=== PATIENT | male | born 1935 | race Caucasian/White ===

== ENCOUNTER 2018-10-07 12:05 | Inpatient (IN) | payer MEDICARE, BC ==
[2018-10-07 12:37] LABS: CHLORIDE,CL 106 mEq/L (98-106); SODIUM,NA 143 mEq/L (136-145)
[2018-10-07] MEDS ORDERED: Sodium Chloride 0.9% 1,000 ML IV ONE ×2 (13:01→13:10)
--- NOTE | 2018-10-07 13:19 | EDM.PDOC ---
ED HPI GENERAL MEDICAL PROBLEM - General Chief Complaint: Chest Pain Stated Complaint: CP FROM THE CLINIC Time Seen by Provider: 10/07/18 13:09 Source of Information: Reports: Patient History Limitations: Reports: No Limitations - History of Present Illness INITIAL COMMENTS - FREE TEXT/NARRATIVE: This patient is an 83 year old male that presents to the ER. Patient reports that the past 2 days he has had dizziness. Patient reports then today he woke up at 7am and went to walk to the kitchen. Patient reports that he became dizzy. He also reports that he was nauseated and diaphoretic. Patient reports that he went back to sit down and the dizziness was there, but improved. He reports the diaphoresis improved as well. Patient reports he called the clinic this morning and made him an appointment today at 11am. Patient reports while driving here that his chest left side was tight. Patient reports left sided chest tightness. He reports his chest tightness resolved completely when he arrived in the ER. Patient also reports he noticed blood in his left eye 1 week ago, but denies any vision changes. Patient also reports he has had fluctuations in blood pressure the last several weeks, but especially since yesterday. He has been low, but today he took at home and was high. Onset Date: 10/05/18 Duration: Getting Worse Location: Reports: Head, Chest Quality: Reports: Other (tightness) Severity: Mild Improves with: Reports: Rest Worsens with: Reports: Movement Associated Symptoms: Reports: Chest Pain, Diaphoresis, Headaches, Nausea/ Vomiting. Denies: Confusion, Cough, cough w sputum, Fever/Chills, Loss of Appetite, Malaise, Rash, Seizure, Shortness of Breath, Syncope, Weakness Head Pain Score (Numeric/FACES): 2 - Related Data Allergies Allergy/AdvReac Type Severity Reaction Status Date / Time Sulfa (Sulfonamide Allergy Hives Verified 10/07/18 13:10 Antibiotics) Home Meds: Home Meds Cyanocobalamin (Vitamin B12) [Vitamin B12] 2,000 mcg IJ Q30D 10/13/13 [History] Multivitamin [Daily Vitamin] 1 each PO DAILY 10/13/13 [History] atorvaSTATin [Lipitor] 10 mg PO DAILY 10/13/13 [History] Moexipril [Univasc] 7.5 mg PO DAILY 12/22/15 [History] Cholecalciferol (Vitamin D3) [Vitamin D3] 1,000 units PO DAILY 12/19/16 [History ] Metoprolol Succinate 25 mg PO DAILY 12/19/16 [History] Sertraline [Zoloft] 1 tab PO DAILY 10/07/18 [History] Past Medical History Cardiovascular History: Reports: Hypertension, Stents Neurological History: Reports: CVA Social & Family History - Family History Family Medical History: Noncontributory - Tobacco Use Smoking Status *Q: Never Smoker - Recreational Drug Use Recreational Drug Use: No ED ROS GENERAL - Review of Systems Review Of Systems: See Below Constitutional: Reports: Diaphoresis HEENT: Reports: No Symptoms Respiratory: Reports: No Symptoms. Denies: Shortness of Breath Cardiovascular: Reports: Chest Pain, Lightheadedness Endocrine: Reports: No Symptoms GI/Abdominal: Reports: Nausea. Denies: Abdominal Pain, Vomiting : Reports: No Symptoms Musculoskeletal: Reports: No Symptoms Skin: Reports: No Symptoms Neurological: Reports: Dizziness, Headache Psychiatric: Reports: No Symptoms Hematologic/Lymphatic: Reports: No Symptoms Immunologic: Reports: No Symptoms ED EXAM, GENERAL - Physical Exam Exam: See Below Exam Limited By: No Limitations General Appearance: Alert, WD/WN, No Apparent Distress Eye Exam: Right Eye: Normal Inspection, Left Eye: Other (subconjunctival hemorrhage ), Bilateral Eye: EOMI, PERRL Ears: Normal External Exam, Normal Canal, Hearing Grossly Normal, Normal TMs Ear Exam: Bilateral Ear: Auricle Normal, Canal Normal, TM normal Nose: Normal Inspection, Normal Mucosa, No Blood Throat/Mouth: Normal Inspection, Normal Lips, Normal Teeth, Normal Gums, Normal Oropharynx, Normal Voice, No Airway Compromise Head: Atraumatic, Normocephalic Neck: Normal Inspection, Supple, Non-Tender, Full Range of Motion Respiratory/Chest: No Respiratory Distress, Lungs Clear, Normal Breath Sounds, No Accessory Muscle Use, Chest Non-Tender Cardiovascular: Normal Peripheral Pulses, Regular Rate, Rhythm, No Edema, No Gallop, No JVD, No Murmur, No Rub Peripheral Pulses: 2+: Radial (L), Radial (R), Posterior Tibial (L), Posterior Tibial (R), Dorsalis Pedis (L), Dorsalis Pedis (R) GI/Abdominal: Normal Bowel Sounds, Soft, Non-Tender, No Organomegaly, No Distention, No Abnormal Bruit, No Mass, Pelvis Stable (Male) Exam: Deferred Rectal (Males) Exam: Deferred Back Exam: Normal Inspection, Full Range of Motion Extremities: Normal Inspection, Normal Range of Motion, Non-Tender, No Pedal Edema, Normal Capillary Refill Neurological: Alert, Oriented, CN II-XII Intact, Normal Cognition, Normal Gait, No Motor/Sensory Deficits Psychiatric: Normal Affect, Normal Mood Skin Exam: Warm, Dry, Intact, Normal Color, No Rash Lymphatic: No Adenopathy Course - Vital Signs Last Recorded V/S: Last Vital Signs Temp 97.6 F 10/07/18 12:05 Pulse 54 L 10/07/18 13:35 Resp 18 10/07/18 13:19 BP 207/84 H 10/07/18 13:35 Pulse Ox 97 10/07/18 13:35 - Orders/Labs/Meds Orders: Active Orders 24 hr Category Date Time Status Chest 2V [CR] Stat Exams 10/07/18 12:13 Taken Head wo Cont [CT] Stat Exams 10/07/18 12:13 Taken TROPONIN I [CHEM] Stat Lab 10/07/18 16:00 Ordered Sodium Chloride 0.9% [Normal Saline] 1,000 ml Med 10/07/18 13:01 Active IV .BOLUS Medication Orders Sodium Chloride (Normal Saline) 1,000 mls @ 1,000 mls/hr IV .BOLUS ONE Stop: 10/07/18 14:00 Last Admin: 10/07/18 13:30 Dose: 1,000 mls/hr Labs: Laboratory Tests 10/07/18 10/07/18 10/07/18 Range/Units 12:09 12:09 12:16 WBC 6.1 (5.0-10.0) 10^3/uL RBC 5.09 (4.50-6.00) 10^6/uL Hgb 15.1 (14.0-18.0) g/dL Hct 45.6 (40.0-54.0) % MCV 89.6 (82.0-94.0) fL MCH 29.7 (27.0-32.0) pg MCHC 33.1 (33.0-38.0) g/dL RDW Coeff of Jonas 12.9 (11.0-15.0) % Plt Count 153 (150-400) 10^3/uL Neut % (Auto) 82.6 (35-85) % Lymph % (Auto) 11.8 (10-55) % Bertie % (Auto) 4.6 (0-16) % Eos % (Auto) 0.7 (0-5) % Baso % (Auto) 0.3 (0-3) % Neut # (Auto) 5.05 (1.80-7.00) 10^3/uL Lymph # (Auto) 0.72 L (1.00-4.80) 10^3/uL Bertie # (Auto) 0.28 (0.00-0.80) 10^3/uL Eos # (Auto) 0.04 (0.00-0.45) 10^3/uL Baso # (Auto) 0.02 10^3/uL PT (9.7-12.3) SEC INR (0.92-1.18) Sodium 143 (136-145) mEq/L Potassium 4.0 (3.5-5.0) mEq/L Chloride 106 (98-106) mEq/L Carbon Dioxide 30 (21-32) mmol/L BUN 20 H (7-18) mg/dL Creatinine 1.5 H (0.7-1.3) mg/dL Est Cr Clr Drug Dosing 33.66 mL/min Estimated GFR (MDRD) 44 L (>=60) mL/min Glucose 133 H (75-99) mg/dL Calcium 9.3 (8.4-10.1) mg/dL Lactate Dehydrogenase 170 (100-190) U/L Creatine Kinase 58 (35-232) U/L Troponin I < 0.017 (0.00-0.06) ng/mL Urine Color Tri (YELLOW) Urine Appearance Slightly cloudy (CLEAR) Urine pH 6.0 (4.5-8.0) Ur Specific [place] 1.025 H (1.003-1.020) Urine Protein Trace H (NEGATIVE) mg/dL Urine Glucose (UA) Negative (NEGATIVE) mg/dL Urine Ketones Negative (NEGATIVE) mg/dL Urine Occult Blood Small H (NEGATIVE) Urine Nitrite Negative (NEGATIVE) Urine Bilirubin Negative (NEGATIVE) Urine Urobilinogen 1.0 (0.2-1.0) EU/dL Ur Leukocyte Esterase Negative (NEGATIVE) Urine RBC 5-10 H (0-5) /HPF Urine WBC 0-5 (0-5) /HPF Ur Squamous Epith Cells Occasional H (NOT SEEN) /HPF Urine Bacteria Occasional H (NOT SEEN) /HPF Urine Mucus Occasional H (NOT SEEN) /HPF 10/07/18 Range/Units 12:20 WBC (5.0-10.0) 10^3/uL RBC (4.50-6.00) 10^6/uL Hgb (14.0-18.0) g/dL Hct (40.0-54.0) % MCV (82.0-94.0) fL MCH (27.0-32.0) pg MCHC (33.0-38.0) g/dL RDW Coeff of Jonas (11.0-15.0) % Plt Count (150-400) 10^3/uL Neut % (Auto) (35-85) % Lymph % (Auto) (10-55) % Bertie % (Auto) (0-16) % Eos % (Auto) (0-5) % Baso % (Auto) (0-3) % Neut # (Auto) (1.80-7.00) 10^3/uL Lymph # (Auto) (1.00-4.80) 10^3/uL Bertie # (Auto) (0.00-0.80) 10^3/uL Eos # (Auto) (0.00-0.45) 10^3/uL Baso # (Auto) 10^3/uL PT 10.3 (9.7-12.3) SEC INR 1.00 (0.92-1.18) Sodium (136-145) mEq/L Potassium (3.5-5.0) mEq/L Chloride (98-106) mEq/L Carbon Dioxide (21-32) mmol/L BUN (7-18) mg/dL Creatinine (0.7-1.3) mg/dL Est Cr Clr Drug Dosing mL/min Estimated GFR (MDRD) (>=60) mL/min Glucose (75-99) mg/dL Calcium (8.4-10.1) mg/dL Lactate Dehydrogenase (100-190) U/L Creatine Kinase (35-232) U/L Troponin I (0.00-0.06) ng/mL Urine Color (YELLOW) Urine Appearance (CLEAR) Urine pH (4.5-8.0) Ur Specific [place] (1.003-1.020) Urine Protein (NEGATIVE) mg/dL Urine Glucose (UA) (NEGATIVE) mg/dL Urine Ketones (NEGATIVE) mg/dL Urine Occult Blood (NEGATIVE) Urine Nitrite (NEGATIVE) Urine Bilirubin (NEGATIVE) Urine Urobilinogen (0.2-1.0) EU/dL Ur Leukocyte Esterase (NEGATIVE) Urine RBC (0-5) /HPF Urine WBC (0-5) /HPF Ur Squamous Epith Cells (NOT SEEN) /HPF Urine Bacteria (NOT SEEN) /HPF Urine Mucus (NOT SEEN) /HPF Meds: Medications Generic Name Dose Route Start Last Admin Trade Name Freq PRN Reason Stop Dose Admin Sodium Chloride 1,000 mls @ 1,000 mls/hr 10/07/18 13:01 10/07/18 13:30 Normal Saline IV 10/07/18 14:00 1,000 mls/hr .BOLUS ONE Administration Discontinued Medications Generic Name Dose Route Start Last Admin Trade Name Freq PRN Reason Stop Dose Admin Sodium Chloride 1,000 mls @ 500 mls/hr 10/07/18 13:10 10/07/18 13:29 Normal Saline IV 10/07/18 15:09 Not Given .BOLUS ONE - Re-Assessments/Exams Free Text/Narrative Re-Assessment/Exam: 10/07/18 13:18 At this time, patient does have elevated BP in the ER 201/86. Will give Norvasc PO x1. Also, with patient symptoms, elevated CR, and wide range BP fluctuations , will admit. Possible R/O renal stenosis. Discussed with Dr. Babcock and Kyle SALGUERO who is now assuming care of the patient. I have given him report. Patient does report now that he feels good, no CP, no dizziness, no nausea, not diaphoretic. Kyle will put in admit orders. Departure - Departure Time of Disposition: 13:53 Disposition: Admitted As Inpatient 64 Condition: Fair Clinical Impression: Acute coronary syndrome, HTN, Benign hypertension Forms: ED Department Discharge - My Orders Last 24 Hours: My Active Orders 10/07/18 12:13 Chest 2V [CR] Stat Head wo Cont [CT] Stat 10/07/18 13:01 Sodium Chloride 0.9% [Normal Saline] 1,000 ml IV .BOLUS 10/07/18 16:00 TROPONIN I [CHEM] Stat - Assessment/Plan Last 24 Hours: My Active Orders 10/07/18 12:13 Chest 2V [CR] Stat Head wo Cont [CT] Stat 10/07/18 13:01 Sodium Chloride 0.9% [Normal Saline] 1,000 ml IV .BOLUS 10/07/18 16:00 TROPONIN I [CHEM] Stat Plan: PLEASE SEE RN NOTE FOR PFSH. PLEASE USE ER H&P ADMIT H&P.
[2018-10-07] MEDS ORDERED: amLODIPine 2.5 MG Tab PO ONE ×2 (13:53→15:31)
[2018-10-07] MEDS ORDERED: Acetaminophen 325 MG Tab PO PRN (15:33)
[2018-10-07] MEDS: Enoxaparin 30 MG/0.3 ML Syringe SUBCUT SCH (15:59)
[2018-10-07] MEDS ORDERED: amLODIPine 10 MG Tab PO SCH (20:00)
[2018-10-07] MEDS ORDERED: Metoprolol Succinate 100 MG Tab.ER PO SCH (20:00)
[2018-10-07] MEDS: atorvaSTATin 10 MG Tab PO SCH (20:52)
[2018-10-08] MEDS ORDERED: amLODIPine 2.5 MG Tab PO STA (04:23)
[2018-10-08 07:43] LABS: CHLORIDE,CL 108 mEq/L (98-106); SODIUM,NA 144 mEq/L (136-145)
[2018-10-08] MEDS ORDERED: Lisinopril 5 MG Tab PO SCH (08:00)
[2018-10-08] MEDS: Lisinopril 10 MG Tab PO SCH (08:40)
[2018-10-08] MEDS: Sertraline 25 MG Tab PO SCH (08:41)
--- NOTE | 2018-10-08 08:46 | PCM.PN ---
- General Info Date of Service: 10/08/18 Admission Dx/Problem (Free Text): Hypertension Subjective Update: Mino is an 83 year old male who was admitted to the hospital from the ED on for hypertensive urgency. Has apparently been having sporadic BPS for some time now. Was dizzy upon ED presentation and found to have BP elevated in 200s/100s. Admitted for workup and monitoring. Is having renal US today to r/o renal artery stenosis. He reports he is feeling well this morning. Does c/o frontal headache. Has not had any dizziness this morning. No chest pain, shortness of breath, weakness or vision changes. Functional Status: Reports: Pain Controlled, Tolerating Diet, Ambulating, Urinating - Review of Systems General: Reports: No Symptoms HEENT: Reports: No Symptoms. Denies: Visual Changes Pulmonary: Reports: No Symptoms. Denies: Shortness of Breath Cardiovascular: Reports: No Symptoms. Denies: Chest Pain, Palpitations, Dyspnea on Exertion, Edema, Lightheadedness Gastrointestinal: Reports: No Symptoms. Denies: Abdominal Pain, Diarrhea, Nausea, Vomiting Genitourinary: Reports: No Symptoms Musculoskeletal: Reports: No Symptoms Skin: Reports: No Symptoms Neurological: Reports: Headache. Denies: Confusion, Dizziness, Difficulty Walking, Weakness Psychiatric: Reports: No Symptoms - Patient Data Vitals - Most Recent: Last Vital Signs Temp 96 F 10/08/18 07:53 Pulse 59 L 10/08/18 07:53 Resp 18 10/08/18 07:53 BP 183/107 H 10/08/18 08:40 Pulse Ox 96 10/08/18 07:53 Weight - Most Recent: 175 lb Lab Results Last 24 Hours: Laboratory Results - last 24 hr 10/07/18 10/07/18 10/07/18 Range/Units 12:09 12:09 12:16 WBC 6.1 (5.0-10.0) 10^3/uL RBC 5.09 (4.50-6.00) 10^6/uL Hgb 15.1 (14.0-18.0) g/dL Hct 45.6 (40.0-54.0) % MCV 89.6 (82.0-94.0) fL MCH 29.7 (27.0-32.0) pg MCHC 33.1 (33.0-38.0) g/dL RDW Coeff of Jonas 12.9 (11.0-15.0) % Plt Count 153 (150-400) 10^3/uL Neut % (Auto) 82.6 (35-85) % Lymph % (Auto) 11.8 (10-55) % [place] % (Auto) 4.6 (0-16) % Eos % (Auto) 0.7 (0-5) % Baso % (Auto) 0.3 (0-3) % Neut # (Auto) 5.05 (1.80-7.00) 10^3/uL Lymph # (Auto) 0.72 L (1.00-4.80) 10^3/uL [place] # (Auto) 0.28 (0.00-0.80) 10^3/uL Eos # (Auto) 0.04 (0.00-0.45) 10^3/uL Baso # (Auto) 0.02 10^3/uL PT (9.7-12.3) SEC INR (0.92-1.18) Sodium 143 (136-145) mEq/L Potassium 4.0 (3.5-5.0) mEq/L Chloride 106 (98-106) mEq/L Carbon Dioxide 30 (21-32) mmol/L BUN 20 H (7-18) mg/dL Creatinine 1.5 H (0.7-1.3) mg/dL Est Cr Clr Drug Dosing 33.66 mL/min Estimated GFR (MDRD) 44 L (>=60) mL/min Glucose 133 H (75-99) mg/dL Calcium 9.3 (8.4-10.1) mg/dL Lactate Dehydrogenase 170 (100-190) U/L Creatine Kinase 58 (35-232) U/L Troponin I < 0.017 (0.00-0.06) ng/mL Urine Color Tri (YELLOW) Urine Appearance Slightly cloudy (CLEAR) Urine pH 6.0 (4.5-8.0) Ur Specific [place] 1.025 H (1.003-1.020) Urine Protein Trace H (NEGATIVE) mg/dL Urine Glucose (UA) Negative (NEGATIVE) mg/dL Urine Ketones Negative (NEGATIVE) mg/dL Urine Occult Blood Small H (NEGATIVE) Urine Nitrite Negative (NEGATIVE) Urine Bilirubin Negative (NEGATIVE) Urine Urobilinogen 1.0 (0.2-1.0) EU/dL Ur Leukocyte Esterase Negative (NEGATIVE) Urine RBC 5-10 H (0-5) /HPF Urine WBC 0-5 (0-5) /HPF Ur Squamous Epith Cells Occasional H (NOT SEEN) /HPF Urine Bacteria Occasional H (NOT SEEN) /HPF Urine Mucus Occasional H (NOT SEEN) /HPF 10/07/18 10/08/18 10/08/18 Range/Units 12:20 07:00 07:00 WBC 4.3 L (5.0-10.0) 10^3/uL RBC 5.02 (4.50-6.00) 10^6/uL Hgb 14.8 (14.0-18.0) g/dL Hct 44.9 (40.0-54.0) % MCV 89.4 (82.0-94.0) fL MCH 29.5 (27.0-32.0) pg MCHC 33.0 (33.0-38.0) g/dL RDW Coeff of Jonas 12.8 (11.0-15.0) % Plt Count 133 L (150-400) 10^3/uL Neut % (Auto) 62.3 (35-85) % Lymph % (Auto) 24.7 (10-55) % [place] % (Auto) 9.5 (0-16) % Eos % (Auto) 3.0 (0-5) % Baso % (Auto) 0.5 (0-3) % Neut # (Auto) 2.70 (1.80-7.00) 10^3/uL Lymph # (Auto) 1.07 (1.00-4.80) 10^3/uL [place] # (Auto) 0.41 (0.00-0.80) 10^3/uL Eos # (Auto) 0.13 (0.00-0.45) 10^3/uL Baso # (Auto) 0.02 10^3/uL PT 10.3 (9.7-12.3) SEC INR 1.00 (0.92-1.18) Sodium 144 (136-145) mEq/L Potassium 4.1 (3.5-5.0) mEq/L Chloride 108 H (98-106) mEq/L Carbon Dioxide 31 (21-32) mmol/L BUN 15 (7-18) mg/dL Creatinine 1.3 (0.7-1.3) mg/dL Est Cr Clr Drug Dosing 38.84 mL/min Estimated GFR (MDRD) 52 L (>=60) mL/min Glucose 117 H (75-99) mg/dL Calcium 8.7 (8.4-10.1) mg/dL Lactate Dehydrogenase (100-190) U/L Creatine Kinase (35-232) U/L Troponin I < 0.017 (0.00-0.06) ng/mL Urine Color (YELLOW) Urine Appearance (CLEAR) Urine pH (4.5-8.0) Ur Specific [place] (1.003-1.020) Urine Protein (NEGATIVE) mg/dL Urine Glucose (UA) (NEGATIVE) mg/dL Urine Ketones (NEGATIVE) mg/dL Urine Occult Blood (NEGATIVE) Urine Nitrite (NEGATIVE) Urine Bilirubin (NEGATIVE) Urine Urobilinogen (0.2-1.0) EU/dL Ur Leukocyte Esterase (NEGATIVE) Urine RBC (0-5) /HPF Urine WBC (0-5) /HPF Ur Squamous Epith Cells (NOT SEEN) /HPF Urine Bacteria (NOT SEEN) /HPF Urine Mucus (NOT SEEN) /HPF Med Orders - Current: Current Medications Acetaminophen (Tylenol) 650 mg PO Q4H PRN PRN Reason: Pain (Mild 1-3)/fever Last Admin: 10/08/18 04:33 Dose: 650 mg Amlodipine Besylate (Norvasc) 10 mg PO BEDTIME [facility] Atorvastatin Calcium (Lipitor) 10 mg PO BEDTIME [facility] Last Admin: 10/07/18 20:52 Dose: 10 mg Enoxaparin Sodium (Lovenox) 30 mg SUBCUT Q24H [facility] Last Admin: 10/07/18 15:59 Dose: 30 mg Lisinopril (Prinivil) 10 mg PO DAILY [facility] Last Admin: 10/08/18 08:40 Dose: 10 mg Sertraline HCl (Zoloft) 25 mg PO DAILY [facility] Last Admin: 10/08/18 08:41 Dose: 25 mg Discontinued Medications Amlodipine Besylate (Norvasc) 2.5 mg PO ONETIME ONE Stop: 10/07/18 13:54 Last Admin: 10/07/18 14:13 Dose: 2.5 mg Amlodipine Besylate (Norvasc) 5 mg PO BEDTIME [facility] Last Admin: 10/07/18 21:00 Dose: Not Given Amlodipine Besylate (Norvasc) 2.5 mg PO ONETIME ONE Stop: 10/07/18 15:32 Last Admin: 10/07/18 16:01 Dose: 2.5 mg Amlodipine Besylate (Norvasc) 2.5 mg PO ONETIME STA Stop: 10/08/18 04:24 Last Admin: 10/08/18 04:33 Dose: 2.5 mg Sodium Chloride (Normal Saline) 1,000 mls @ 1,000 mls/hr IV .BOLUS ONE Stop: 10/07/18 14:00 Last Admin: 10/07/18 13:30 Dose: 1,000 mls/hr Sodium Chloride (Normal Saline) 1,000 mls @ 500 mls/hr IV .BOLUS ONE Stop: 10/07/18 15:09 Last Admin: 10/07/18 13:29 Dose: Not Given Lisinopril (Prinivil) 5 mg PO DAILY [facility] Metoprolol Succinate (Toprol Xl) 50 mg PO QPM [facility] Last Admin: 10/07/18 22:01 Dose: Not Given - Exam Quality Assessment: DVT Prophylaxis General: Alert, Oriented, No Acute Distress HEENT: Pupils Equal, Pupils Reactive, EOMI, Mucous Membr. Moist/[place] Neck: Supple Lungs: Clear to Auscultation, Normal Respiratory Effort Cardiovascular: Regular Rate, Regular Rhythm GI/Abdominal Exam: Normal Bowel Sounds, Soft, Non-Tender, No Organomegaly, No Distention, No Abnormal Bruit, No Mass, Pelvis Stable Extremities: Normal Inspection, Normal Range of Motion, Non-Tender, No Pedal Edema, Normal Capillary Refill Neurological: No New Focal Deficit Psy/Mental Status: Alert, Normal Affect, Normal Mood - Problem List & Annotations (1) Hypertension SNOMED Code(s): 58767687 Code(s): I10 - ESSENTIAL (PRIMARY) HYPERTENSION Status: Chronic Current Visit: Yes Qualifiers: Hypertension type: essential hypertension Qualified Code(s): I10 - Essential (primary) hypertension - Problem List Review Problem List Initiated/Reviewed/Updated: Yes - My Orders Last 24 Hours: My Active Orders 10/08/18 08:30 Lisinopril [Prinivil] 10 mg PO DAILY 10/08/18 20:00 Metoprolol Succinate [Toprol XL] 25 mg PO QPM amLODIPine [Norvasc] 10 mg PO BEDTIME - Assessment Assessment:: Hypertensive Urgency - Plan Plan:: - Increase Norvasc to 10 mg at HS - Will decrease Metoprolol back to previous dose of 25 due to bradycardia on telemetry - Increase lisinopril to 10 mg daily - Renal US negative - Continue to monitor BP - Creatinine improved from 1.5 to 1.3. Labs otherwise stable. Repeat labs in am - Anticipate discharge 1-2 days
[2018-10-08] MEDS: Enoxaparin 30 MG/0.3 ML Syringe SUBCUT SCH (16:18)
[2018-10-08] MEDS ORDERED: Metoprolol Succinate 25 MG Tab.ER PO SCH (20:00)
[2018-10-08] MEDS: atorvaSTATin 10 MG Tab PO SCH (20:00)
[2018-10-08] MEDS ORDERED: amLODIPine 10 MG Tab PO SCH (20:00)
[2018-10-09] MEDS: Lisinopril 10 MG Tab PO SCH (07:50)
[2018-10-09] MEDS: Sertraline 25 MG Tab PO SCH (07:51)
[2018-10-09 07:55] VITALS: BP 191/87
[2018-10-09 08:08] VITALS: PULSE 62
--- NOTE | 2018-10-09 21:37 | PCM.DCSUM1 ---
Discharge Summary - Hospital Course Free Text/Narrative:: Patient presented to ER with complaints of left sided chest discomfort, dizziness and fluctuations in blood pressure. He had gotten up to go for a walk but felt dizzy. States that did subside after resting but due to fluctuations in blood pressure, felt he should have this evaluated. He had noted both lows and highs of his blood pressure. Enroute to the clinic, noted chest tightness so presented to the ER. Blood pressure noted to be high in the ER, 200s/80-100. Due to chest pain, hypertensive urgency, was admitted to monitor cardiac status and control blood pressure. Typically on Univasc 7.5 mg daily. Given Norvasc x1 in the ER. Lab work all essentially negative, creatinine mildly elevated at 1.5. Diagnosis: Stroke: No Modified Juan Scale: No Symptoms at All Modified [place] Scale Score: 0 - Discharge Data Discharge Date: 10/09/18 Discharge Disposition: Home, Self-Care 01 Condition: Good - Discharge Diagnosis/Problem(s) (1) Hypertension SNOMED Code(s): 83955441 ICD Code: I10 - ESSENTIAL (PRIMARY) HYPERTENSION Status: Chronic Priority : High Qualifiers: Hypertension type: essential hypertension Qualified Code(s): I10 - Essential (primary) hypertension - Patient Summary/Data Complications: none Hospital Course: Patient feeling good today. Has been ambulating in halls without difficulty. No further chest pain. Labs have remained normal. Blood pressure does still fluctuate. Has varied between 120/70 to 197/106. Was started on Norvasc, increased to 10 mg daily. Lisinopril increased to 10 mg daily. Renal artery ultrasound is negative. Patient does have his blood pressure monitor here, is shown to have multiple low blood pressures at times as well. Per telemetry, heart rate drops to 50s at times. Due to fluctuations in blood pressure, will continue Norvasc and Lisinopril. Start aspirin. Stop metoprolol. Follow up with Dr. Babcock on Sunday. - Patient Instructions Diet: Usual Diet as Tolerated Activity: As Tolerated - Discharge Plan *PRESCRIPTION DRUG MONITORING PROGRAM REVIEWED*: No *COPY OF PRESCRIPTION DRUG MONITORING REPORT IN PATIENT MELISSA: No Prescriptions/Med Rec: amLODIPine [Norvasc] 10 mg PO BEDTIME #30 tab Aspirin [Halfprin] 81 mg PO DAILY #30 tab.ec Lisinopril [Prinivil] 10 mg PO DAILY #30 tablet Home Medications: Home Meds Cyanocobalamin (Vitamin B12) [Vitamin B12] 2,000 mcg IJ Q30D 10/13/13 [History] Multivitamin [Daily Vitamin] 1 each PO DAILY 10/13/13 [History] atorvaSTATin [Lipitor] 10 mg PO DAILY 10/13/13 [History] Cholecalciferol (Vitamin D3) [Vitamin D3] 1,000 units PO DAILY 12/19/16 [History ] Sertraline [Zoloft] 1 tab PO DAILY 10/07/18 [History] Aspirin [Halfprin] 81 mg PO DAILY #30 tab.ec 10/09/18 [Rx] Lisinopril [Prinivil] 10 mg PO DAILY #30 tablet 10/09/18 [Rx] amLODIPine [Norvasc] 10 mg PO BEDTIME #30 tab 10/09/18 [Rx] Forms: ED Department Discharge Referrals: Sharan Babcock MD [Primary Care Provider] - (Follow up with Dr. Babcock on Sunday) - Discharge Summary/Plan Comment DC Time >30 min.: No - General Info Date of Service: 10/09/18 Admission Dx/Problem (Free Text: Hypertension Functional Status: Reports: Pain Controlled, Tolerating Diet, Ambulating - Review of Systems General: Reports: Weakness. Denies: Fatigue, Malaise HEENT: Reports: No Symptoms Pulmonary: Denies: Shortness of Breath, Cough Cardiovascular: Denies: Chest Pain, Edema, Lightheadedness Gastrointestinal: Denies: Abdominal Pain, Nausea, Vomiting Genitourinary: Reports: No Symptoms Musculoskeletal: Reports: No Symptoms Skin: Reports: No Symptoms Neurological: Reports: No Symptoms - Patient Data Vitals - Most Recent: Last Vital Signs Temp 96.8 F 10/09/18 08:00 Pulse 62 10/09/18 08:00 Resp 16 10/09/18 08:00 BP 191/87 H 10/09/18 08:00 Pulse Ox 98 10/09/18 08:00 Weight - Most Recent: 175 lb Med Orders - Current: Current Medications Discontinued Medications Acetaminophen (Tylenol) 650 mg PO Q4H PRN PRN Reason: Pain (Mild 1-3)/fever Last Admin: 10/08/18 04:33 Dose: 650 mg Amlodipine Besylate (Norvasc) 2.5 mg PO ONETIME ONE Stop: 10/07/18 13:54 Last Admin: 10/07/18 14:13 Dose: 2.5 mg Amlodipine Besylate (Norvasc) 5 mg PO BEDTIME [facility] Last Admin: 10/07/18 21:00 Dose: Not Given Amlodipine Besylate (Norvasc) 2.5 mg PO ONETIME ONE Stop: 10/07/18 15:32 Last Admin: 10/07/18 16:01 Dose: 2.5 mg Amlodipine Besylate (Norvasc) 2.5 mg PO ONETIME STA Stop: 10/08/18 04:24 Last Admin: 10/08/18 04:33 Dose: 2.5 mg Amlodipine Besylate (Norvasc) 10 mg PO BEDTIME [facility] Last Admin: 10/08/18 20:01 Dose: 10 mg Atorvastatin Calcium (Lipitor) 10 mg PO BEDTIME [facility] Last Admin: 10/08/18 20:00 Dose: 10 mg Enoxaparin Sodium (Lovenox) 30 mg SUBCUT Q24H [facility] Last Admin: 10/08/18 16:18 Dose: 30 mg Sodium Chloride (Normal Saline) 1,000 mls @ 1,000 mls/hr IV .BOLUS ONE Stop: 10/07/18 14:00 Last Admin: 10/07/18 13:30 Dose: 1,000 mls/hr Sodium Chloride (Normal Saline) 1,000 mls @ 500 mls/hr IV .BOLUS ONE Stop: 10/07/18 15:09 Last Admin: 10/07/18 13:29 Dose: Not Given Lisinopril (Prinivil) 5 mg PO DAILY [facility] Lisinopril (Prinivil) 10 mg PO DAILY [facility] Last Admin: 10/09/18 07:50 Dose: 10 mg Metoprolol Succinate (Toprol Xl) 50 mg PO QPM [facility] Last Admin: 10/07/18 22:01 Dose: Not Given Metoprolol Succinate (Toprol Xl) 25 mg PO QPM [facility] Last Admin: 10/08/18 20:00 Dose: 25 mg Sertraline HCl (Zoloft) 25 mg PO DAILY [facility] Last Admin: 10/09/18 07:51 Dose: 25 mg - Exam General: Reports: Alert, Oriented HEENT: Reports: Mucous Membr. Moist/Olean Neck: Reports: Supple Lungs: Reports: Clear to Auscultation, Normal Respiratory Effort Cardiovascular: Reports: Bradycardia GI/Abdominal Exam: Normal Bowel Sounds, Soft, Non-Tender Extremities: Normal Inspection, No Pedal Edema Skin: Reports: Warm, Dry Neurological: Reports: No New Focal Deficit
== END 2018-10-09 10:05 | disposition home or self-care (01) | DRG 305 ==
LOC: CC.ED 12:05 → UNDOADMIN 15:06 → CC.MS 15:06
PROVIDERS: ADMIT Physician Assistant Medical; ATTEND Family Medicine
DX: I16.0 Hypertensive urgency (principal); I24.9 Acute ischemic heart disease, unspecified; I10 Essential (primary) hypertension; Z86.73 Personal history of transient ischemic attack (TIA), and cerebral infarction without residual deficits; Z95.820 Peripheral vascular angioplasty status with implants and grafts; Z79.82 Long term (current) use of aspirin; Z95.5 Presence of coronary angioplasty implant and graft; Z79.899 Other long term (current) drug therapy; Z88.2 Allergy status to sulfonamides
CPT/HCPCS: 36415; 70450; 71046; 80048; 81001; 82550; 83615; 84484; 85025; 85610; 93005; 96360; 99285; A9270; J7030; 93010; 93975; 99217; 99220; 99225; J1650

== ENCOUNTER 2020-11-29 15:43 | Inpatient (IN) | payer MEDICARE, BC ==
[2020-11-29] MEDS ORDERED: Iopamidol 755 Mg/ML 100 ML Bottle IVPUSH ONE (16:38)
--- NOTE | 2020-11-29 16:47 | EDM.PDOC ---
ED HPI GENERAL MEDICAL PROBLEM - General Chief Complaint: General Stated Complaint: Body Aches, Cough Time Seen by Provider: 11/29/20 15:50 Source of Information: Reports: Patient History Limitations: Reports: No Limitations - History of Present Illness INITIAL COMMENTS - FREE TEXT/NARRATIVE: Mino is an 85 year old male who presents to ER with complaints of a 3 day history of fever, body aches, chest congestion and cough. States is feeling weak and tired. Awoke early this am with shaking badly for about 40 minutes. Admits to decreased appetite. States skin feels very sensitive to touch. No loss of taste or smell. Does have nonproductive cough. No sore throat, ear pain or sinus congestion. Unsure how high fever has been. No nausea or vomiting. Did received the covid vaccine earlier this year. Onset: Gradual Duration: Day(s):, Getting Worse Location: Reports: Chest, Generalized Quality: Reports: Ache Associated Symptoms: Reports: Cough, Fever/Chills, Loss of Appetite, Malaise, Weakness. Denies: Confusion, Chest Pain, cough w sputum, Nausea/Vomiting, Shortness of Breath - Related Data Allergies Allergy/AdvReac Type Severity Reaction Status Date / Time Sulfa (Sulfonamide Allergy Hives Verified 11/29/20 15:45 Antibiotics) Home Meds: Home Meds Cyanocobalamin (Vitamin B12) [Vitamin B12] 2,000 mcg IJ Q30D 10/13/13 [History] Multivitamin [Daily Vitamin] 1 each PO DAILY 10/13/13 [History] atorvaSTATin [Lipitor] 10 mg PO DAILY 10/13/13 [History] Cholecalciferol (Vitamin D3) [Vitamin D3] 1,000 units PO DAILY 12/19/16 [History] Sertraline [Zoloft] 1 tab PO DAILY 10/07/18 [History] Aspirin [Halfprin] 81 mg PO DAILY #30 tab.ec 10/09/18 [Rx] amLODIPine [Norvasc] 10 mg PO BEDTIME #30 tab 10/09/18 [Rx] Past Medical History Cardiovascular History: Reports: Hypertension, Stents Neurological History: Reports: CVA, Parkinson's Oncologic (Cancer) History: Reports: Bladder Social & Family History - Family History Family Medical History: No Pertinent Family History - Tobacco Use Tobacco Use Status *Q: Never Tobacco User Second Hand Smoke Exposure: No - Caffeine Use Caffeine Use: Reports: None - Recreational Drug Use Recreational Drug Use: No ED ROS GENERAL - Review of Systems Review Of Systems: See Below Constitutional: Reports: Fever, Chills, Malaise, Weakness, Fatigue, Decreased Appetite HEENT: Denies: Ear Pain, Rhinitis, Sinus Problem, Throat Pain Respiratory: Reports: Cough. Denies: Shortness of Breath Cardiovascular: Denies: Chest Pain, Dyspnea on Exertion, Lightheadedness Endocrine: Reports: Fatigue GI/Abdominal: Reports: Decreased Appetite, Nausea. Denies: Abdominal Pain, Constipation, Diarrhea, Vomiting : Reports: No Symptoms Musculoskeletal: Reports: Muscle Pain Skin: Reports: Other (sin sensitivity) Neurological: Reports: Weakness Psychiatric: Reports: No Symptoms ED EXAM, GENERAL - Physical Exam Exam: See Below Exam Limited By: No Limitations General Appearance: Alert, WD/WN, No Apparent Distress Ears: Normal External Exam, Normal TMs Nose: Normal Inspection, Normal Mucosa, No Blood Throat/Mouth: Normal Inspection, Normal Oropharynx Head: Normocephalic Neck: Normal Inspection, Supple, Non-Tender Respiratory/Chest: No Respiratory Distress, Lungs Clear, Normal Breath Sounds Cardiovascular: Regular Rate, Rhythm, No Edema GI/Abdominal: Normal Bowel Sounds, Soft, Non-Tender Extremities: Normal Inspection, No Pedal Edema Neurological: Alert, Oriented Skin Exam: Warm, Dry Course - Vital Signs Last Recorded V/S: Last Vital Signs Temp 98.7 F 11/29/20 15:43 Pulse 71 11/29/20 15:43 Resp 16 11/29/20 15:43 BP 112/63 11/29/20 15:43 Pulse Ox 95 11/29/20 15:43 - Orders/Labs/Meds Orders: Active Orders 24 hr Category Date Time Status Ang Chest [CT] Stat Exams 11/29/20 16:37 Ordered Chest 1V Frontal [CR] Stat Exams 11/29/20 15:48 Taken Isolation [COMM] Routine Oth 11/29/20 16:36 Active Labs: Laboratory Tests 11/29/20 11/29/20 11/29/20 Range/Units 15:46 15:55 15:55 WBC 5.8 (4.0-11.0) 10^3/uL RBC 4.12 L (4.50-6.00) x10^6/uL Hgb 12.1 L (14.0-18.0) g/dL Hct 36.8 L (42.0-52.0) % MCV 89.3 (83.0-97.0) fL MCH 29.4 (27.0-32.0) pg MCHC 32.9 (32.0-36.0) g/dL RDW Coeff of Jonas 13.3 (11.0-15.0) % Plt Count 157 (150-400) 10^3/uL Immature Gran % (Auto) 0.2 (0.0-4.9) % Neut % (Auto) 67.4 (41-71) % Lymph % (Auto) 15.0 L (24-44) % [place] % (Auto) 15.9 H (0-10) % Eos % (Auto) 1.0 (0-6) % Baso % (Auto) 0.5 (0-1) % Neut # (Auto) 3.90 (1.80-8.00) x10^3/uL Lymph # (Auto) 0.87 (0.60-5.00) 10^3/uL [place] # (Auto) 0.92 (0.00-1.50) 10^3/uL Eos # (Auto) 0.06 (0.00-1.50) 10^3/uL Baso # (Auto) 0.03 (0.00-0.50) 10^3/uL Immature Gran # (Auto) 0.01 (0.00-0.49) 10^3/uL D-Dimer, Quantitative 1.09 H (0.00-0.50) Sodium (136-145) mEq/L Potassium (3.5-5.0) mEq/L Chloride (98-106) mEq/L Carbon Dioxide (21-32) mmol/L BUN (7-18) mg/dL Creatinine (0.7-1.3) mg/dL Est Cr Clr Drug Dosing mL/min Estimated GFR (MDRD) (>=60) mL/min Glucose (75-99) mg/dL Lactic Acid (0.4-2.0) mmol/L Calcium (8.4-10.1) mg/dL Magnesium (1.8-2.4) mg/dL Total Bilirubin (0.0-1.0) mg/dL AST (15-37) U/L ALT (12-78) U/L Alkaline Phosphatase (46-116) U/L Creatine Kinase (35-232) U/L Troponin I High Sens (<=76) pg/mL C-Reactive Protein (0.2-0.8) mg/dL NT-Pro-B Natriuret Pep (0-1000) pg/mL Total Protein (6.4-8.2) g/dL Albumin (3.4-5.0) g/dL SARS CoV-2 RNA Rapid MEDINA Negative (NEGATIVE) 11/29/20 11/29/20 Range/Units 15:55 15:55 WBC (4.0-11.0) 10^3/uL RBC (4.50-6.00) x10^6/uL Hgb (14.0-18.0) g/dL Hct (42.0-52.0) % MCV (83.0-97.0) fL MCH (27.0-32.0) pg MCHC (32.0-36.0) g/dL RDW Coeff of Jonas (11.0-15.0) % Plt Count (150-400) 10^3/uL Immature Gran % (Auto) (0.0-4.9) % Neut % (Auto) (41-71) % Lymph % (Auto) (24-44) % [place] % (Auto) (0-10) % Eos % (Auto) (0-6) % Baso % (Auto) (0-1) % Neut # (Auto) (1.80-8.00) x10^3/uL Lymph # (Auto) (0.60-5.00) 10^3/uL [place] # (Auto) (0.00-1.50) 10^3/uL Eos # (Auto) (0.00-1.50) 10^3/uL Baso # (Auto) (0.00-0.50) 10^3/uL Immature Gran # (Auto) (0.00-0.49) 10^3/uL D-Dimer, Quantitative (0.00-0.50) Sodium 143 (136-145) mEq/L Potassium 3.9 (3.5-5.0) mEq/L Chloride 104 (98-106) mEq/L Carbon Dioxide 25 (21-32) mmol/L BUN 24 H (7-18) mg/dL Creatinine 1.5 H (0.7-1.3) mg/dL Est Cr Clr Drug Dosing 32.44 mL/min Estimated GFR (MDRD) 44 L (>=60) mL/min Glucose 113 H (75-99) mg/dL Lactic Acid 1.2 (0.4-2.0) mmol/L Calcium 8.8 (8.4-10.1) mg/dL Magnesium 2.3 (1.8-2.4) mg/dL Total Bilirubin 1.0 (0.0-1.0) mg/dL AST 17 (15-37) U/L ALT 13 (12-78) U/L Alkaline Phosphatase 71 (46-116) U/L Creatine Kinase 62 (35-232) U/L Troponin I High Sens 10.9 (<=76) pg/mL C-Reactive Protein 11.9 H (0.2-0.8) mg/dL NT-Pro-B Natriuret Pep 872 (0-1000) pg/mL Total Protein 7.1 (6.4-8.2) g/dL Albumin 3.3 L (3.4-5.0) g/dL SARS CoV-2 RNA Rapid MEDINA (NEGATIVE) Meds: Medications Discontinued Medications Generic Name Dose Route Start Last Admin Trade Name Jackq PRN Reason Stop Dose Admin Iopamidol 100 ml 11/29/20 16:38 Iopamidol 755 Mg/Ml 100 Ml Bottle IVPUSH 11/29/20 16:39 ONETIME ONE - Re-Assessments/Exams Free Text/Narrative Re-Assessment/Exam: 11/29/20 1630 Labs note normal WBC. CRP is 11.9. Creatinine up slightly at 1.5. Other labs unremarkable. Covid negative. Chest xray unremarkable 1700-Influenza B positive. CTA done of chest, awaiting results. Departure - Departure Time of Disposition: 17:12 Disposition: Refer to Observation Condition: Fair Clinical Impression: Influenza B - Discharge Information *PRESCRIPTION DRUG MONITORING PROGRAM REVIEWED*: No *COPY OF PRESCRIPTION DRUG MONITORING REPORT IN PATIENT MELISSA: No Forms: ED Department Discharge Sepsis Event Note (ED) - Evaluation Sepsis Screening Result: No Definite Risk - Focused Exam Vital Signs: Vital Signs Temp Pulse Resp BP Pulse Ox 11/29/20 15:43 98.7 F 71 16 112/63 95 - Problem List & Annotations (1) Influenza B SNOMED Code(s): 60025968 Code(s): J10.1 - FLU DUE TO OTH IDENT INFLUENZA VIRUS W OTH RESP MANIFEST Status: Acute Priority: High Current Visit: Yes - Problem List Review Problem List Initiated/Reviewed/Updated: Yes - My Orders Last 24 Hours: My Active Orders 11/29/20 15:48 Chest 1V Frontal [CR] Stat 11/29/20 16:36 Isolation [COMM] Routine 11/29/20 16:37 Ang Chest [CT] Stat - Assessment/Plan Admission H&P: Please use this note as an admission H&P Last 24 Hours: My Active Orders 11/29/20 15:48 Chest 1V Frontal [CR] Stat 11/29/20 16:36 Isolation [COMM] Routine 11/29/20 16:37 Ang Chest [CT] Stat Assessment:: Influenza B Plan: Admit to observation. IV fluids. Fever control. Repeat labs in am. Dr. Babcock aware.
[2020-11-29] MEDS ORDERED: Ondansetron 4 MG Tab.DIS PO PRN (17:30)
[2020-11-29] MEDS ORDERED: Ondansetron 4 MG/2 ML SDV IV PRN (17:30)
[2020-11-29] MEDS ORDERED: Sodium Chloride 0.9% 10 ML Syringe FLUSH PRN (17:30)
[2020-11-29] MEDS: Acetaminophen 325 MG Tab PO PRN (18:07)
[2020-11-29] MEDS: Sodium Chloride 0.9% 1,000 ML IV SCH (18:07)
[2020-11-29] MEDS: Ibuprofen 200 MG Tab PO PRN (19:15)
[2020-11-29] MEDS: Enoxaparin 40 MG/0.4 ML Syringe SUBCUT SCH (19:16)
[2020-11-29] MEDS: Oseltamivir Phosphate 30 MG Capsule PO SCH (19:44)
[2020-11-30] MEDS: Sodium Chloride 0.9% 1,000 ML IV SCH ×2 (07:22→22:05)
[2020-11-30] MEDS: Oseltamivir Phosphate 30 MG Capsule PO SCH ×2 (08:19→19:57)
[2020-11-30] MEDS ORDERED: Levofloxacin/Dextrose 5%-Water 500 MG in Premix Bag 1 BAG IV ONE (09:00)
[2020-11-30] MEDS ORDERED: ATORVASTATIN 10 MG PO SCH ×2 (09:00→20:00)
[2020-11-30] MEDS: Carbidopa/Levodopa 25-100 MG Tab **PTOM PO SCH ×4 (09:02→19:44)
[2020-11-30] MEDS: Aspirin 81 MG Tab.EC PO SCH (09:02)
--- NOTE | 2020-11-30 11:36 | PN ---
DATE: 11/30/2020 S: Mr. Vidal is an 85-year-old, admitted yesterday for influenza B. He apparently came in with fevers, body aches, and chest congestion. He denies today that he has actually been coughing, but Madelyntj Shanks's report is that he had been. He has been vaccinated with the COVID vaccine. His workup is reviewed. His labs are all essentially stable other than an elevated CRP and a positive influenza. He did have a CTA of his chest for a slightly elevated D- dimer as well. For the most part, he is feeling a little bit better. He did run temperatures up until about midnight last night. I got a call from nursing that he has positive blood culture and it is gram-negative. I went back and reviewed his chart. He did not have a urinalysis on admit. O: GENERAL: The patient is pleasant, alert, and cooperative. He appears in no distress. HEENT: Grossly benign. NECK: Veins are flat and nondistended. LUNGS: Sounds are quite clear in all carney. CARDIAC: Tones are regular. ABDOMEN: Appears soft and nontender. He has no flank pain. SKIN: Without any erythema. EXTREMITIES: No peripheral edema is seen. ASSESSMENT: 1. INFLUENZA B. 2. POSITIVE BLOOD CULTURE, GRAM-NEGATIVE JOHN PAUL. 3. HYPERTENSION. 4. HYPERLIPIDEMIA. 5. PARKINSON'S. P: The patient will be started on IV Levaquin. We will get a urinalysis as this could be the most likely etiology of his gram-negative sepsis. We will continue IV fluids at this time and no other changes. CHENCHO/ALE /[id number]
[2020-11-30] MEDS: Acetaminophen 325 MG Tab PO PRN ×2 (16:32)
[2020-11-30] MEDS: Ibuprofen 200 MG Tab PO PRN (17:25)
[2020-11-30] MEDS: Enoxaparin 40 MG/0.4 ML Syringe SUBCUT SCH (19:35)
[2020-11-30] MEDS ORDERED: Oseltamivir 30 MG Cap ONE (20:19)
[2020-12-01] MEDS: Aspirin 81 MG Tab.EC PO SCH (08:14)
[2020-12-01] MEDS: Levofloxacin/Dextrose 5%-Water 250 MG in Premix Bag 1 BAG IV SCH (08:14)
[2020-12-01] MEDS: Carbidopa/Levodopa 25-100 MG Tab **PTOM PO SCH (08:21)
--- NOTE | 2020-12-01 08:54 | PCM.PN ---
- General Info Date of Service: 12/01/20 Admission Dx/Problem (Free Text): Influenza B Subjective Update: Patient states still continues to feel tired and achy. Chest still feels tight but less congested than on arrival here. No cough now. Low grade fevers, 100.5 last night. No nausea or vomiting. Has been eating well. Patient states was up and about in room and admits to still being weak. Functional Status: Reports: Pain Controlled, Tolerating Diet, Ambulating - Review of Systems General: Reports: Fever, Weakness, Fatigue, Malaise HEENT: Reports: Ear Pain. Denies: Headaches, Sinus Congestion Pulmonary: Reports: Other (chest tightness). Denies: Shortness of Breath, Cough Cardiovascular: Denies: Chest Pain, Edema, Lightheadedness Gastrointestinal: Denies: Abdominal Pain, Diarrhea, Nausea, Vomiting Genitourinary: Reports: Other (uses [place] catheter normally; states is voiding often) Musculoskeletal: Reports: No Symptoms Skin: Reports: No Symptoms Neurological: Reports: Weakness Psychiatric: Reports: No Symptoms - Patient Data Vitals - Most Recent: Last Vital Signs Temp 99.1 F 12/01/20 08:00 Pulse 65 12/01/20 08:00 Resp 18 12/01/20 08:00 BP 136/71 12/01/20 08:00 Pulse Ox 94 L 12/01/20 08:00 Weight - Most Recent: 171 lb 4.8 oz I&O - Last 24 Hours: Intake & Output 11/30/20 12/01/20 12/01/20 22:59 06:59 14:59 Intake Total 1000 Balance 1000 Lab Results Last 24 Hours: Laboratory Results - last 24 hr 11/30/20 12/01/20 12/01/20 Range/Units 08:44 08:10 08:10 WBC 5.2 (4.0-11.0) 10^3/uL RBC 4.29 L (4.50-6.00) x10^6/uL Hgb 12.6 L (14.0-18.0) g/dL Hct 38.0 L (42.0-52.0) % MCV 88.6 (83.0-97.0) fL MCH 29.4 (27.0-32.0) pg MCHC 33.2 (32.0-36.0) g/dL RDW Coeff of Jonas 13.2 (11.0-15.0) % Plt Count 150 (150-400) 10^3/uL Immature Gran % (Auto) 0.4 (0.0-4.9) % Neut % (Auto) 72.4 H (41-71) % Lymph % (Auto) 11.1 L (24-44) % [place] % (Auto) 14.7 H (0-10) % Eos % (Auto) 0.8 (0-6) % Baso % (Auto) 0.6 (0-1) % Neut # (Auto) 3.80 (1.80-8.00) x10^3/uL Lymph # (Auto) 0.58 L (0.60-5.00) 10^3/uL [place] # (Auto) 0.77 (0.00-1.50) 10^3/uL Eos # (Auto) 0.04 (0.00-1.50) 10^3/uL Baso # (Auto) 0.03 (0.00-0.50) 10^3/uL Immature Gran # (Auto) 0.02 (0.00-0.49) 10^3/uL Sodium 146 H (136-145) mEq/L Potassium 3.7 (3.5-5.0) mEq/L Chloride 110 H (98-106) mEq/L Carbon Dioxide 27 (21-32) mmol/L BUN 17 (7-18) mg/dL Creatinine 1.2 (0.7-1.3) mg/dL Est Cr Clr Drug Dosing 40.55 mL/min Estimated GFR (MDRD) 57 L (>=60) mL/min Glucose 112 H (75-99) mg/dL Calcium 8.9 (8.4-10.1) mg/dL Total Bilirubin 0.6 (0.0-1.0) mg/dL AST 29 (15-37) U/L ALT 20 (12-78) U/L Alkaline Phosphatase 91 (46-116) U/L C-Reactive Protein 18.5 H (0.2-0.8) mg/dL Total Protein 6.6 (6.4-8.2) g/dL Albumin 2.8 L (3.4-5.0) g/dL Urine Color Light yellow (YELLOW) Urine Appearance Slightly cloudy (CLEAR) Urine pH 7.0 (4.5-8.0) Ur Specific [place] 1.015 (1.003-1.020) Urine Protein Negative (NEGATIVE) mg/dL Urine Glucose (UA) Negative (NEGATIVE) mg/dL Urine Ketones Negative (NEGATIVE) mg/dL Urine Occult Blood Moderate H (NEGATIVE) Urine Nitrite Negative (NEGATIVE) Urine Bilirubin Negative (NEGATIVE) Urine Urobilinogen 0.2 (0.2-1.0) EU/dL Ur Leukocyte Esterase Moderate H (NEGATIVE) Urine RBC 5-10 H (0-5) /HPF Urine WBC 20-30 H (0-5) /HPF Ur Epithelial Cells Few H (NOT SEEN) /HPF Urine Bacteria Moderate H (NOT SEEN) /HPF Davi Results Last 24 Hours: Microbiology 11/29/20 19:45 Aerobic Blood Culture - Preliminary Blood - Venous - Lab Draw NO GROWTH AFTER 1 DAY Anaerobic Blood Culture - Preliminary Gram Negative Rods 11/29/20 19:40 Aerobic Blood Culture - Preliminary Blood - Venous NO GROWTH AFTER 1 DAY Anaerobic Blood Culture - Preliminary NO GROWTH AFTER 1 DAY Med Orders - Current: Current Medications Acetaminophen (Acetaminophen 325 Mg Tab) 650 mg PO Q4H PRN PRN Reason: Pain (Mild 1-3)/fever Last Admin: 11/30/20 16:32 Dose: 650 mg Documented by: Amlodipine Besylate (Amlodipine 10 Mg Tab Ptom) 10 mg PO BEDTIME [facility] Last Admin: 11/30/20 19:40 Dose: 10 mg Documented by: Aspirin (Aspirin 81 Mg Tab.Ec) 81 mg PO DAILY [facility] Last Admin: 12/01/20 08:14 Dose: 81 mg Documented by: Atorvastatin Calcium (Atorvastatin 10 Mg Tab Ptom) 10 mg PO BEDTIME [facility] Last Admin: 11/30/20 19:43 Dose: 10 mg Documented by: Carbidopa/Levodopa (Carbidopa/Levodopa 25-100 Mg Tab Ptom) 1 tab PO QID [facility] Last Admin: 12/01/20 08:21 Dose: 1 tab Documented by: Enoxaparin Sodium (Enoxaparin 40 Mg/0.4 Ml Syringe) 40 mg SUBCUT BEDTIME [facility] Last Admin: 11/30/20 19:35 Dose: 40 mg Documented by: Sodium Chloride (Normal Saline) 1,000 mls @ 50 mls/hr IV ASDIRECTED [facility] Last Admin: 11/30/20 22:05 Dose: 75 mls/hr Documented by: Levofloxacin/Dextrose 250 mg/ (Premix) 50 mls @ 50 mls/hr IV Q24H [facility] Last Admin: 12/01/20 08:14 Dose: 50 mls/hr Documented by: Ibuprofen (Ibuprofen 200 Mg Tab) 400 mg PO Q6H PRN PRN Reason: Fever Last Admin: 11/30/20 17:25 Dose: 400 mg Documented by: Ondansetron HCl (Ondansetron 4 Mg Tab.Dis) 4 mg PO Q4H PRN PRN Reason: nausea, able to take PO Ondansetron HCl (Ondansetron 4 Mg/2 Ml Sdv) 4 mg IV Q4H PRN PRN Reason: Nausea/Vomiting Oseltamivir Phosphate (Oseltamivir Phosphate 30 Mg Capsule) 30 mg PO BID [facility] Stop: 12/04/20 08:01 Last Admin: 11/30/20 19:57 Dose: 30 mg Documented by: Sertraline HCl (Sertraline 100 Mg Tab Ptom) 100 mg PO DAILY [facility] Last Admin: 11/30/20 09:02 Dose: 100 mg Documented by: Sodium Chloride (Sodium Chloride 0.9% 10 Ml Syringe) 10 ml FLUSH ASDIRECTED PRN PRN Reason: Keep Vein Open Discontinued Medications Amlodipine Besylate (Amlodipine 10 Mg Tab Ptom) 10 mg PO BEDTIME [facility] Atorvastatin Calcium (Atorvastatin 10 Mg Tab Ptom) 10 mg PO DAILY [facility] Levofloxacin/Dextrose 500 mg/ (Premix) 100 mls @ 100 mls/hr IV ONETIME ONE Stop: 11/30/20 09:59 Last Admin: 11/30/20 09:02 Dose: 100 mls/hr Documented by: Iopamidol (Iopamidol 755 Mg/Ml 100 Ml Bottle) 100 ml IVPUSH ONETIME ONE Stop: 11/29/20 16:39 Last Admin: 11/29/20 17:15 Dose: 100 ml Documented by: Oseltamivir Phosphate (Oseltamivir 30 Mg Cap) Confirm Administered Dose 30 mg .ROUTE .STK-MED ONE Stop: 11/30/20 20:20 Last Admin: 11/30/20 20:20 Dose: Not Given Documented by: - Exam General: Alert, Oriented HEENT: Mucous Membr. Moist/[place] Neck: Supple Lungs: Clear to Auscultation, Normal Respiratory Effort Cardiovascular: Regular Rate, Regular Rhythm GI/Abdominal Exam: Normal Bowel Sounds, Soft, Non-Tender Extremities: Normal Inspection, No Pedal Edema Skin: Warm, Dry Neurological: No New Focal Deficit - Patient Data Lab Results Last 24 hrs: Laboratory Results - last 24 hr 11/30/20 12/01/20 12/01/20 Range/Units 08:44 08:10 08:10 WBC 5.2 (4.0-11.0) 10^3/uL RBC 4.29 L (4.50-6.00) x10^6/uL Hgb 12.6 L (14.0-18.0) g/dL Hct 38.0 L (42.0-52.0) % MCV 88.6 (83.0-97.0) fL MCH 29.4 (27.0-32.0) pg MCHC 33.2 (32.0-36.0) g/dL RDW Coeff of Jonas 13.2 (11.0-15.0) % Plt Count 150 (150-400) 10^3/uL Immature Gran % (Auto) 0.4 (0.0-4.9) % Neut % (Auto) 72.4 H (41-71) % Lymph % (Auto) 11.1 L (24-44) % [place] % (Auto) 14.7 H (0-10) % Eos % (Auto) 0.8 (0-6) % Baso % (Auto) 0.6 (0-1) % Neut # (Auto) 3.80 (1.80-8.00) x10^3/uL Lymph # (Auto) 0.58 L (0.60-5.00) 10^3/uL [place] # (Auto) 0.77 (0.00-1.50) 10^3/uL Eos # (Auto) 0.04 (0.00-1.50) 10^3/uL Baso # (Auto) 0.03 (0.00-0.50) 10^3/uL Immature Gran # (Auto) 0.02 (0.00-0.49) 10^3/uL Sodium 146 H (136-145) mEq/L Potassium 3.7 (3.5-5.0) mEq/L Chloride 110 H (98-106) mEq/L Carbon Dioxide 27 (21-32) mmol/L BUN 17 (7-18) mg/dL Creatinine 1.2 (0.7-1.3) mg/dL Est Cr Clr Drug Dosing 40.55 mL/min Estimated GFR (MDRD) 57 L (>=60) mL/min Glucose 112 H (75-99) mg/dL Calcium 8.9 (8.4-10.1) mg/dL Total Bilirubin 0.6 (0.0-1.0) mg/dL AST 29 (15-37) U/L ALT 20 (12-78) U/L Alkaline Phosphatase 91 (46-116) U/L C-Reactive Protein 18.5 H (0.2-0.8) mg/dL Total Protein 6.6 (6.4-8.2) g/dL Albumin 2.8 L (3.4-5.0) g/dL Urine Color Light yellow (YELLOW) Urine Appearance Slightly cloudy (CLEAR) Urine pH 7.0 (4.5-8.0) Ur Specific [place] 1.015 (1.003-1.020) Urine Protein Negative (NEGATIVE) mg/dL Urine Glucose (UA) Negative (NEGATIVE) mg/dL Urine Ketones Negative (NEGATIVE) mg/dL Urine Occult Blood Moderate H (NEGATIVE) Urine Nitrite Negative (NEGATIVE) Urine Bilirubin Negative (NEGATIVE) Urine Urobilinogen 0.2 (0.2-1.0) EU/dL Ur Leukocyte Esterase Moderate H (NEGATIVE) Urine RBC 5-10 H (0-5) /HPF Urine WBC 20-30 H (0-5) /HPF Ur Epithelial Cells Few H (NOT SEEN) /HPF Urine Bacteria Moderate H (NOT SEEN) /HPF Result Diagrams: 12/01/20 08:10 12/01/20 08:10 Davi Results Last 24 hrs: Microbiology 11/29/20 19:45 Aerobic Blood Culture - Preliminary Blood - Venous - Lab Draw NO GROWTH AFTER 1 DAY Anaerobic Blood Culture - Preliminary Gram Negative Rods 11/29/20 19:40 Aerobic Blood Culture - Preliminary Blood - Venous NO GROWTH AFTER 1 DAY Anaerobic Blood Culture - Preliminary NO GROWTH AFTER 1 DAY Sepsis Event Note - Evaluation Sepsis Screening Result: Possible Sepsis Risk - Focused Exam Vital Signs: Vital Signs Temp Pulse Resp BP Pulse Ox 12/01/20 08:00 99.1 F 65 18 136/71 94 L 12/01/20 04:00 97.6 F 66 16 148/72 H 91 L 11/30/20 23:36 99.1 F 75 16 137/73 92 L - Problem List & Annotations (1) Influenza B SNOMED Code(s): 40195329 Code(s): J10.1 - FLU DUE TO OTH IDENT INFLUENZA VIRUS W OTH RESP MANIFEST Status: Acute Priority: High Current Visit: Yes (2) Sepsis secondary to UTI SNOMED Code(s): 423622861 Code(s): A41.9 - SEPSIS, UNSPECIFIED ORGANISM; N39.0 - URINARY TRACT INFECTION, SITE NOT SPECIFIED Status: Acute Priority: High Current Visit: Yes - Problem List Review Problem List Initiated/Reviewed/Updated: Yes - My Orders Last 24 Hours: My Active Orders 11/30/20 09:00 Aspirin [Halfprin] 81 mg PO DAILY Carbidopa/Levodopa [Sinemet 25-100 mg] 1 tab PO QID Sertraline [Zoloft] 100 mg PO DAILY 11/30/20 20:00 amLODIPine [Norvasc] 10 mg PO BEDTIME atorvaSTATin [Lipitor] 10 mg PO BEDTIME 12/01/20 08:10 LACTIC ACID [CHEM] Routine 12/01/20 08:34 Patient Status [ADT] Routine - Assessment Assessment:: Influenza B Sepsis secondary to UTI - Plan Plan:: Patient is feeling better than on admission. Feels chest tightness, is tolerating being up to chair and ambulating short distances. Fevers now low grade. Does still weak. Labs show normal WBC of 5.2. Hemoglobin 12.6. Electrolytes normal. CRP is improved to 18.5. Blood culture shows e coli, urine culture gram negative rods as well. Sensitive to Rocephin. Due to persistent weakness, low grade fevers and positive blood cultures, will transfer to acute inpatient for ongoing IV antibiotics. PT for strengthening.
[2020-12-01] MEDS ORDERED: Oseltamivir Phosphate 30 MG Capsule PO SCH (09:15)
[2020-12-01] MEDS: Sertraline 100 MG Tab PO SCH (09:57)
[2020-12-01] MEDS: Oseltamivir Phosphate 30 MG Capsule PO SCH (09:58)
[2020-12-01] MEDS ORDERED: Oseltamivir 30 MG Cap ONE ×2 (10:20→20:06)
[2020-12-01] MEDS: Carbidopa/Levodopa 25-100 MG Tab PO SCH ×3 (11:07→19:52)
[2020-12-01] MEDS: Sodium Chloride 0.9% 1,000 ML IV SCH (13:49)
[2020-12-01] MEDS: Ibuprofen 200 MG Tab PO PRN (16:13)
[2020-12-01] MEDS: Enoxaparin 40 MG/0.4 ML Syringe SUBCUT SCH (19:50)
[2020-12-01] MEDS: atorvaSTATin 10 MG Tab PO SCH (19:50)
[2020-12-01] MEDS: amLODIPine 10 MG Tab PO SCH (19:51)
[2020-12-01] MEDS: Oseltamivir 30 MG Cap PO SCH (19:58)
[2020-12-01] MEDS ORDERED: Oseltamivir 30 MG Cap PO SCH (20:00)
[2020-12-02] MEDS: Sertraline 100 MG Tab PO SCH (08:06)
[2020-12-02] MEDS: Levofloxacin/Dextrose 5%-Water 250 MG in Premix Bag 1 BAG IV SCH (08:06)
[2020-12-02] MEDS: Carbidopa/Levodopa 25-100 MG Tab PO SCH ×4 (08:06→19:38)
[2020-12-02] MEDS: Aspirin 81 MG Tab.EC PO SCH (08:06)
[2020-12-02] MEDS: Oseltamivir 30 MG Cap PO SCH ×2 (08:06→19:38)
[2020-12-02] MEDS: Ibuprofen 200 MG Tab PO PRN (12:02)
--- NOTE | 2020-12-02 14:30 | PN ---
DATE: 12/02/2020 S: Mino is doing better. He has less body aches. He has not spiked a fever in over a day. Minimal chest congestion at this time. He has actually been up and ambulating with physical therapy. O: NECK: Shows him to have flat neck veins. LUNGS: Improved and clear throughout. CARDIAC: Tones regular. ABDOMEN: Soft. He has no flank pain to palpation. EXTREMITIES: No peripheral edema seen. ASSESSMENT: 1. INFLUENZA B. 2. UROSEPSIS SECONDARY TO ESCHERICHIA COLI. 3. HYPERTENSION. 4. HYPERLIPIDEMIA. 5. PARKINSON'S. P: Clinically, the patient looks better. We will stop his IV fluids. We will get him up and ambulating today. Hopefully, home tomorrow. CHENCHO/ALE /[id number]
[2020-12-02] MEDS: atorvaSTATin 10 MG Tab PO SCH (19:38)
[2020-12-02] MEDS: amLODIPine 10 MG Tab PO SCH (19:38)
[2020-12-02] MEDS: Enoxaparin 40 MG/0.4 ML Syringe SUBCUT SCH (19:38)
[2020-12-03] MEDS: Sertraline 100 MG Tab PO SCH (07:20)
[2020-12-03] MEDS: Oseltamivir 30 MG Cap PO SCH (07:20)
[2020-12-03] MEDS: Carbidopa/Levodopa 25-100 MG Tab PO SCH ×2 (07:21→11:11)
[2020-12-03] MEDS: Aspirin 81 MG Tab.EC PO SCH (07:21)
[2020-12-03] MEDS: Levofloxacin/Dextrose 5%-Water 250 MG in Premix Bag 1 BAG IV SCH (07:21)
[2020-12-03 08:32] VITALS: BP 127/68; PULSE 78
--- NOTE | 2020-12-03 14:06 | DISCH ---
ADMISSION DIAGNOSIS: Influenza B. DISCHARGE DIAGNOSIS: 1. INFLUENZA B. 2. UROSEPSIS SECONDARY TO URINARY TRACT INFECTION, LIKELY SECONDARY TO PROSTATITIS. 3. HYPERTENSION. 4. HYPERLIPIDEMIA. 5. PARKINSON'S DISEASE. HISTORY: The patient is an 85-year-old male who presented to our emergency room with a 3-day history of cough, fevers, and body aches. Madelyn Shanks evaluated him and he ultimately tested positive for influenza and was negative for COVID. He had an elevated CRP, but otherwise relatively normal and stable labs. She admitted him and started him on Tamiflu. She did do blood cultures because when he presented to our emergency room, he had fever of approximately 104.5. HOSPITAL COURSE: The patient was admitted for appropriate cares. He never required any supplemental O2. He was started on some low rate IV fluids. The day after admission, the patient's blood culture came back positive for gram- negative jack. Started him on IV Levaquin empirically and patient was continued on all other cares. His blood cultures ultimately grew out E coli sensitive to fluoroquinolones. He did spike temps for approximately 24 to 48 hours after admission, but low-grade, and for the last 48 hours the patient has been afebrile. His CRP reached a remigio of 18.5, it is down to 4.5. He has been doing very well. He has not had any further fevers. His blood pressures are stable. He is eating well. He has been up and ambulating, working with Physical Therapy and has had no problems with his strength. He appears to be back to his baseline. He is going to finish a 7-day outpatient course of Levaquin and he will have a followup urinalysis next week in clinic. He is having minimal to no further symptoms from his influenza including cough, body aches, fevers, and all in all appears to be resolving nicely. COMPLICATIONS: During the stay were none. CONSULTATIONS: PT. DISPOSITION: Discharged home with instructions for one-week followup in the office. ETTA /[id number]
== END 2020-12-03 13:05 | disposition home or self-care (01) | DRG 872 ==
LOC: CC.ED 15:43 → CC.MS 17:02 → UNDOADMOB 17:02 → CC.MS 17:15 → OBSVTOIN 12-01 08:34
PROVIDERS: ADMIT Physician Assistant Medical; ATTEND Family Medicine
DX: A41.51 Sepsis due to Escherichia coli [E. coli] (principal); N39.0 Urinary tract infection, site not specified; J10.1 Influenza due to other identified influenza virus with other respiratory manifestations; N41.9 Inflammatory disease of prostate, unspecified; Z86.73 Personal history of transient ischemic attack (TIA), and cerebral infarction without residual deficits; I10 Essential (primary) hypertension; E78.5 Hyperlipidemia, unspecified; G20 Parkinson's disease; Z88.2 Allergy status to sulfonamides; Z79.82 Long term (current) use of aspirin; Z79.899 Other long term (current) drug therapy; A41.9 Sepsis, unspecified organism; Z95.5 Presence of coronary angioplasty implant and graft; Z85.51 Personal history of malignant neoplasm of bladder; Z20.822 Contact with and (suspected) exposure to COVID-19; R06.09 Other forms of dyspnea
CPT/HCPCS: 36415; 71045; 71275; 80048; 80053; 81001; 82550; 83605; 83735; 83880; 84484; 85025; 85379; 86140; 87040; 87077; 87086; 87088; 87186; 87804; 93005; 93010; 96372; 96374; 96376; 97110-GP; 97161-GP; 99220; 99225; 99285-25; A9270-GY; G0378; J1650; J1956; J7030; Q9967; U0002

== ENCOUNTER 2021-11-17 18:50 | Emergency (ER) | payer MEDICARE, BC ==
[2021-11-17] MEDS: Sodium Chloride 0.9% 1,000 ML IV ONE (19:21)
[2021-11-17] MEDS: Diphtheria,Pertussis(Acell),Tetanus Vaccine 0.5 ML Syringe IM ONE (19:24)
[2021-11-17] MEDS: fentaNYL 50 MCG/ML SDV IVPUSH ONE (19:32)
[2021-11-17] MEDS: ceFAZolin 1 GM Vial IVPUSH ONE (19:36)
[2021-11-17 19:58] VITALS: BP 124/62; PULSE 69
[2021-11-18] MEDS ORDERED: fentaNYL 50 MCG/ML SDV ONE (01:52)
== END 2021-11-17 20:15 ==
LOC: CC.ED 18:50
DX: S68.114A Complete traumatic metacarpophalangeal amputation of right ring finger, initial encounter (principal); E78.00 Pure hypercholesterolemia, unspecified; I10 Essential (primary) hypertension; Z86.73 Personal history of transient ischemic attack (TIA), and cerebral infarction without residual deficits; Z88.2 Allergy status to sulfonamides; Z23 Encounter for immunization; W23.1XXA Caught, crushed, jammed, or pinched between stationary objects, initial encounter
CPT/HCPCS: 90471; 90715; 96361; 96374; 96375; 99284; 99285-25; J0690; J3010; J7030